=== PATIENT | female | born 1955 ===

== ENCOUNTER 2016-12-29 16:49 | Emergency (ER) | payer OTHER ==
[2016-12-29 17:01] VITALS: BP 98/68
--- NOTE | 2016-12-29 17:06 | UC ---
Throat Pain/Nasal Ian HPI - HPI Summary HPI Summary: sore throat x 2 days; daughter and grandson have strep. - History of Current Complaint Stated Complaint: SORE THROAT Time Seen by Provider: 12/29/16 17:01 Hx Obtained From: Patient Onset/Duration: Gradual Onset, Lasting Days - 2 Associated Signs & Symptoms: Positive: Dysphagia - Epiglottits Risk Factors Epiglottis Risk Factors: Negative - Allergies/Home Medications Allergies/Adverse Reactions: Allergies Allergy/AdvReac Type Severity Reaction Status Date / Time No Known Allergies Allergy Verified 12/29/16 17:01 Home Medications: Home Medications Levothyroxine TAB* [Synthroid TAB*] 88 mcg PO DAILY 12/29/16 [History Confirmed 12/29/16] PMH/Surg Hx/FS Hx/Imm Hx - Additional Past Medical History Additional PMH: celiac disease Endocrine History Of: Reports: Hypothyroidism Neurological History Of: Reports: Seizures - petit mal, longstanding, no treatment - Surgical History Surgical History: Yes Surgery Procedure, Year, and Place: bilat carpal tunnel. left tib/fib fx- plates & pins. thyroidectomy. gallbladder. appendectomy - Family History Known Family History: Positive: Other - mother with cerebrovascular disease. - Social History Alcohol Use: None Substance Use Type: None Smoking Status (MU): Former Smoker Review of Systems Constitutional: Negative Skin: Negative Eyes: Negative ENT: Sore Throat Respiratory: Cough - chronic, secondary to reflux and malfunctioning epiglottis Cardiovascular: Negative Gastrointestinal: Negative Genitourinary: Negative Motor: Negative Neurovascular: Negative Musculoskeletal: Negative Neurological: Negative Psychological: Negative All Other Systems Reviewed And Are Negative: Yes Physical Exam Triage Information Reviewed: Yes Appearance: Well-Appearing, Thin Vital Signs: Initial Vital Signs Temp 98.7 F 12/29/16 16:52 Pulse 68 12/29/16 16:52 Resp 17 12/29/16 16:52 BP 98/68 12/29/16 16:52 Pulse Ox 99 12/29/16 16:52 Vital Signs Reviewed: Yes Eyes: Positive: Conjunctiva Clear ENT: Positive: Pharyngeal erythema, Tonsillar swelling Neck: Positive: Supple, Nontender, No Lymphadenopathy Respiratory: Positive: Lungs clear, Normal breath sounds Cardiovascular: Positive: RRR, No Murmur Diagnostics - Laboratory Diagnostic Studies Completed/Ordered: positive rapid strep Throat Pain/Nasal Course/Dx - Course Course Of Treatment: amoxicillin for treatment of strep tonsillitis - Differential Dx/Diagnosis Differential Diagnosis/HQI/PQRI: Laryngitis, Pharyngitis, Tonsillitis, URI Provider Diagnoses: strep tonsillitis Discharge - Discharge Plan Condition: Stable Disposition: HOME Prescriptions: Amoxicillin (*) [Amoxicillin 875 MG (*)] 875 mg PO BID #20 tab Patient Education Materials: Strep Throat (ED)
== END 2016-12-29 17:24 | disposition home or self-care (01) ==
LOC: UCCORT 16:49
DX: J03.00 Acute streptococcal tonsillitis, unspecified (principal); E03.9 Hypothyroidism, unspecified; Z90.49 Acquired absence of other specified parts of digestive tract; Z87.891 Personal history of nicotine dependence
CPT/HCPCS: 87651; 99212; G0463

== ENCOUNTER 2017-02-02 16:34 | Emergency (ER) | payer OTHER ==
[2017-02-02 17:12] VITALS: BP 98/55
--- NOTE | 2017-02-02 17:50 | UC ---
Skin Complaint HPI - HPI Summary HPI Summary: 2 Days ago, on palmar surface of left wrist, started with a punctate erythematous area. It has started swelling, redness spread. Now with streaking to left elbow. No fever, feels well. No known trauma/fb/bite. - History of Current Complaint Chief Complaint: UCUpperExtremity Time Seen by Provider: 02/02/17 17:37 Stated Complaint: LEFT WRIST SKIN COMPLAINT Hx Obtained From: Patient ?: No Onset/Duration: Lasting Days Onset Severity: Mild Current Severity: Moderate Location: Other - left wrist Character: Swelling, Redness Alleviating: Nothing Associated Signs & Symptoms: Positive: Rash, Red Streaks. Negative: Fever - Allergy/Home Medications Allergies/Adverse Reactions: Allergies Allergy/AdvReac Type Severity Reaction Status Date / Time No Known Allergies Allergy Verified 02/02/17 17:04 Home Medications: Home Medications Albuterol HFA INHALER* [Ventolin HFA Inhaler*] 2 puff INH Q4H PRN 02/02/17 [ History Confirmed 02/02/17] Mirabegron (NF) [Myrbetriq (NF)] 25 mg PO DAILY 02/02/17 [History Confirmed ] Review of Systems Constitutional: Negative Skin: Other - see hpi ENT: Negative Respiratory: Negative Cardiovascular: Negative Motor: Negative Neurovascular: Negative Musculoskeletal: Negative Neurological: Negative Psychological: Negative All Other Systems Reviewed And Are Negative: Yes PMH/Surg Hx/FS Hx/Imm Hx Previously Healthy: No Endocrine History Of: Reports: Hypothyroidism Neurological History Of: Reports: Seizures - petit mal, longstanding, no treatment - Surgical History Surgical History: Yes Surgery Procedure, Year, and Place: bilat carpal tunnel. left tib/fib fx- plates & pins. thyroidectomy. gallbladder. appendectomy - Family History Known Family History: Positive: Other - mother with cerebrovascular disease. - Social History Alcohol Use: Rare Substance Use Type: None Smoking Status (MU): Former Smoker - Immunization History Most Recent Influenza Vaccination: NONE-ALLERGIC RXN Most Recent Tetanus Shot: UTD Most Recent Pneumonia Vaccination: NONE Physical Exam Triage Information Reviewed: Yes Appearance: Well-Appearing, No Pain Distress, Well-Nourished Vital Signs: Initial Vital Signs Temp 98 F 02/02/17 17:05 Pulse 70 02/02/17 17:05 Resp 18 02/02/17 17:05 BP 98/55 02/02/17 17:05 Pulse Ox 98 02/02/17 17:05 Vital Signs Reviewed: Yes Neck exam: Normal Neck: Positive: Supple Respiratory: Positive: No respiratory distress Musculoskeletal: Positive: Strength Intact, ROM Intact Neurological Exam: Normal Psychological Exam: Normal Skin Exam: Other Skin: Positive: rashes - palmar surface of left wrist 4cm diameter area of erythema surrounding a punctate area with a 1mm scab. No obviously fluctuant area/abscess. There is a streak extending up to elbow. Course/Dx - Course Course Of Treatment: Rx clindamycin. Discharge home stable. - Diagnoses Provider Diagnoses: cellulitis Discharge - Discharge Plan Condition: Stable Disposition: HOME Prescriptions: Clindamycin Cap(NF) [Cleocin 300 mg Cap(NF)] 300 mg PO Q6H #40 cap Patient Education Materials: Cellulitis (ED) Additional Instructions: FOLLOW UP WITH YOUR DOCTOR. GO TO THE EMERGENCY DEPARTMENT FOR ANY WORSENING OF YOUR CONDITION; FEVER, SPREAD OF INFECTION, YOU FEEL ILL OR QUESTIONS OR CONCERNS.
== END 2017-02-02 18:01 | disposition home or self-care (01) ==
LOC: UCCORT 16:34
DX: L03.114 Cellulitis of left upper limb (principal); E03.9 Hypothyroidism, unspecified; Z90.49 Acquired absence of other specified parts of digestive tract; Z87.891 Personal history of nicotine dependence
CPT/HCPCS: 99212; G0463

== ENCOUNTER 2017-11-24 14:37 | Emergency (ER) | payer OTHER ==
[2017-11-24 16:23] VITALS: BP 92/64
--- NOTE | 2017-11-24 16:49 | UC ---
Respiratory Complaint HPI - HPI Summary HPI Summary: Pt c/o cough, SOB, fever, and chills X 3 days. - History of Current Complaint Chief Complaint: UCGeneralIllness Stated Complaint: NAUSEA/FEVER Time Seen by Provider: 11/24/17 16:20 Hx Obtained From: Patient ?: No Onset/Duration: Sudden Onset, Lasting Days, Still Present Timing: Constant Severity Initially: Mild Severity Currently: Mild Pain Intensity: 0 Character: Cough: Nonproductive Aggravating Factors: Exertion, Deep Breaths Alleviating Factors: Bronchodilator Associated Signs And Symptoms: Positive: Fever, Chills, Nasal Congestion - Risk Factors Pulmonary Embolism Risk Factors: Negative Cardiac Risk Factors: Negative Pseudomonas Risk Factors: Chronic Lung Disease - asthma Tuberculosis Risk Factors: Negative - Allergies/Home Medications Allergies/Adverse Reactions: Allergies Allergy/AdvReac Type Severity Reaction Status Date / Time No Known Allergies Allergy Verified 11/24/17 16:24 Home Medications: Home Medications Fluticasone NASAL SPRAY 50MCG* [Flonase NASAL SPRAY 50MCG*] 2 spray BOTH NARES DAILY 11/24/17 [History Confirmed 11/24/17] PMH/Surg Hx/FS Hx/Imm Hx Previously Healthy: Yes Respiratory History: Asthma - Surgical History Surgical History: Yes Surgery Procedure, Year, and Place: bilat carpal tunnel. left tib/fib fx- plates & pins. thyroidectomy. gallbladder. appendectomy - Family History Known Family History: Positive: Other - mother with cerebrovascular disease. - Social History Occupation: Employed Full-time Lives: With Family Alcohol Use: Rare Substance Use Type: None Smoking Status (MU): Former Smoker Have You Smoked in the Last Year: No - Immunization History Most Recent Influenza Vaccination: NONE-ALLERGIC RXN Most Recent Tetanus Shot: UTD Most Recent Pneumonia Vaccination: NONE Review of Systems Constitutional: Fever, Chills, Fatigue Skin: Negative Eyes: Negative ENT: Negative Respiratory: Shortness Of Breath, Cough Cardiovascular: Negative Gastrointestinal: Negative Genitourinary: Negative Motor: Negative Neurovascular: Negative Musculoskeletal: Myalgia Psychological: Negative Is Patient Immunocompromised?: No All Other Systems Reviewed And Are Negative: Yes Physical Exam Triage Information Reviewed: Yes Appearance: Ill-Appearing Vital Signs: Initial Vital Signs Temp 99.7 F 11/24/17 16:19 Pulse 80 11/24/17 16:19 Resp 16 11/24/17 16:19 BP 92/64 11/24/17 16:19 Pulse Ox 97 11/24/17 16:19 Vital Signs Reviewed: Yes Eye Exam: Normal ENT Exam: Normal Dental Exam: Normal Neck exam: Normal Respiratory Exam: Other Respiratory: Positive: Decreased breath sounds Cardiovascular Exam: Normal Musculoskeletal Exam: Normal Neurological Exam: Normal Psychological Exam: Normal Skin Exam: Normal UC Diagnostic Evaluation - Laboratory O2 Sat by Pulse Oximetry: 97 Diagnostic Studies Comment: Rapid flu negative Respiratory Course/Dx - Course Course Of Treatment: Rapid flu negative - Differential Dx/Diagnosis Differential Diagnosis/HQI/PQRI: Bronchitis, Exacerbation Of COPD, Influenza Provider Diagnoses: Bronchitis Discharge - Discharge Plan Condition: Stable Disposition: HOME Prescriptions: DOXYcycline CAP(*) [DOXYcycline 100MG CAP(*)] 100 mg PO Q12H #20 cap predniSONE TAB* [Deltasone TAB*] 30 mg PO DAILY #12 tab Patient Education Materials: Acute Bronchitis (ED) Referrals: Raheel OWENS,Jovon Flower [Primary Care Provider] - If Needed
== END 2017-11-24 16:56 | disposition home or self-care (01) ==
LOC: UCCORT 14:37
DX: J45.909 Unspecified asthma, uncomplicated (principal); E89.0 Postprocedural hypothyroidism; Z90.49 Acquired absence of other specified parts of digestive tract; Z87.891 Personal history of nicotine dependence
CPT/HCPCS: 87502; 99212; G0463

== ENCOUNTER 2018-02-10 18:53 | Emergency (ER) | payer OTHER ==
[2018-02-10 19:19] VITALS: BP 103/65
[2018-02-10] MEDS ORDERED: Lidocaine 2% VISCOUS* 15 ML UDC SWISH SPIT ONE (20:11)
[2018-02-10] MEDS ORDERED: Clindamycin CAP* 150 MG PO ONE (20:13)
--- NOTE | 2018-02-10 21:29 | UC ---
Dental HPI - HPI Summary HPI Summary: 62 yo woman with PMHX of Celiac disease , seizures, s/p thyroidectomy, and cc of 2 teeth hurting which are broken, in upper and lower, left side, for 1-2 months. Has appointment with dentist in about one week. No fever. No swelling. Tried H2O2 and Tylenol. has also had a foul taste in mouth. - History of Current Complaint Chief Complaint: UCDentalProblem Stated Complaint: MOUTH PAIN & SENSITIVITY Time Seen by Provider: 02/10/18 19:36 Hx Obtained From: Patient ?: No - pOst keven Onset/Duration: Lasting Weeks, Still Present Severity: Severe Pain Intensity: 10 Pain Scale Used: 0-10 Numeric Aggravating Factor(s): Heat, Cold, Chewing Alleviating Factor(s): OTC Meds Related History: Previous Dental Care on Same Tooth - Allergies/Home Medications Allergies/Adverse Reactions: Allergies Allergy/AdvReac Type Severity Reaction Status Date / Time wheat Allergy Unknown Unknown Verified 02/10/18 19:09 Reaction Details PMH/Surg Hx/FS Hx/Imm Hx Previously Healthy: No Endocrine History: Thyroid Disease, Hypothyroidism GI/ History: Other - Celiac disese. Other GI/ History: Celiac - Surgical History Surgical History: Yes Surgery Procedure, Year, and Place: bilat carpal tunnel. left tib/fib fx- plates & pins. thyroidectomy. gallbladder. appendectomy - Family History Known Family History: Positive: Other - mother with cerebrovascular disease. - Social History Lives: With Family Alcohol Use: Rare Substance Use Type: None Smoking Status (MU): Former Smoker Have You Smoked in the Last Year: No - Immunization History Most Recent Influenza Vaccination: NONE-ALLERGIC RXN Most Recent Tetanus Shot: UTD Most Recent Pneumonia Vaccination: NONE Review of Systems Constitutional: Negative Skin: Negative Eyes: Negative ENT: Dental Pain Respiratory: Negative Cardiovascular: Negative Gastrointestinal: Negative Genitourinary: Negative Motor: Negative Neurovascular: Negative Musculoskeletal: Negative Neurological: Negative Psychological: Negative Is Patient Immunocompromised?: No All Other Systems Reviewed And Are Negative: Yes Physical Exam - Summary Physical Exam Summary: Alert, Ox3, NAD. pleasant , coop. Triage Information Reviewed: Yes Appearance: Well-Appearing, Well-Nourished Vital Signs: Initial Vital Signs Temp 98.9 F 02/10/18 19:10 Pulse 68 02/10/18 19:10 Resp 18 02/10/18 19:10 BP 103/65 02/10/18 19:10 Pulse Ox 97 02/10/18 19:10 Vital Signs Reviewed: Yes Eye Exam: Normal ENT: Positive: Hearing grossly normal, Pharynx normal, Dental tenderness Dental: Positive: Percussion Tenderness @ - upper and lower second molars on the left. Fractured, with carries to both teeth mentioned above., Gross Decay/ Caries @ - left molar teeth, 2nd upper and lower. Neck exam: Normal Neck: Positive: Supple, Nontender, No Lymphadenopathy Respiratory: Positive: Lungs clear, Normal breath sounds Cardiovascular Exam: Normal Cardiovascular: Positive: RRR, No Murmur, Pulses Normal, Brisk Capillary Refill Abdominal Exam: Normal Abdomen Description: Positive: Nontender, Soft Bowel Sounds: Positive: Present Pelvic Exam: Positive: Other - NE Musculoskeletal Exam: Normal Neurological Exam: Normal Psychological Exam: Normal Skin Exam: Normal Dental Complaint Course/Dx - Differential Dx/Diagnosis Differential Diagnosis/Dx: Dental Abscess, Dental Caries Provider Diagnoses: dental infection, severe carries Discharge - Sign-Out/Discharge Documenting (check all that apply): Discharge - Discharge Plan Condition: Good Disposition: HOME Prescriptions: Clindamycin Cap(NF) [Clindamycin Cap 300 mg Cap(NF)] 300 mg PO TID 7 Days #21 cap Lidocaine 2% VISCOUS* [Xylocaine 2% Viscous*] 5 ml TOPICAL Q4H PRN #1 btl PRN Reason: Pain Patient Education Materials: Dental Abscess (ED) Print Language: CZECH Referrals: Raheel OWENS,Jovon Flower [Primary Care Provider] - Additional Instructions: Use the lidocaine viscous on cotton and apply directly to the affected tooth. Tylenol as needed, for pain, as well. Keep your appointment with dentist. - Billing Disposition and Condition Condition: GOOD Disposition: HOME
== END 2018-02-10 20:31 | disposition home or self-care (01) ==
LOC: UCCORT 18:53
DX: K04.7 Periapical abscess without sinus (principal); K02.9 Dental caries, unspecified; Z87.891 Personal history of nicotine dependence
CPT/HCPCS: 99212; A9270-GY; G0463